=== PATIENT | female | born 1995 | race Caucasian/White ===

== ENCOUNTER 2016-07-11 07:46 | Emergency (ER) | payer MEDICAID, OTHER ==
[~2016-07-11] VITALS: Ht 152.4 cm; Wt 50.0 kg
[2016-07-11 07:50] VITALS: BP 121/84; PULSE 103; RESP 16; TEMP 97.6; O2SAT 99
[2016-07-11 07:58] LABS: MEAN CORPUSCULAR HGB CONC 36.4 % (32.0-36.0)
--- NOTE | 2016-07-11 08:01 | PD ---
HPI Chief Complaint: Pillo alarcon Time Seen by Provider: 07:54 Travel History International Travel<30 days: No Contact w/Intl Traveler<30days: No Traveled to known affect area: No History of Present Illness HPI 20-year-old female was Pillo acted and brought in for evaluation. Patient was sending text messages to her counselor and threatening suicidal. Patient denies any medical history. Patient is not on any routine medication. Patient states that she has history of IV drug abuse including opiates. Last drink use was yesterday. Patient denies any chance of being . PFSH Social History Alcohol Use: No Tobacco Use: No Allergies-Medications (Allergen,Severity, Reaction): Coded Allergies: No Known Allergies (Unverified , 02/17/15) Reported Meds & Prescriptions Reported Meds & Active Scripts Active No Active Prescriptions or Reported Medications Review of Systems General / Constitutional: No: Fever Eyes: No: Visual changes HENT: No: Headaches Cardiovascular: No: Chest Pain or Discomfort Respiratory: No: Shortness of Breath Gastrointestinal: No: Abdominal Pain Genitourinary: No: Dysuria Musculoskeletal: No: Pain Skin: No Rash Neurologic: No: Weakness Psychiatric: No: Depression Endocrine: No: Polydipsia Hematologic/Lymphatic: No: Easy Bruising Physical Exam Narrative GENERAL: Well-nourished, well-developed patient. SKIN: Focused skin assessment warm/dry. HEAD: Normocephalic. EYES: No scleral icterus. No injection or drainage. NECK: Supple, trachea midline. No JVD or lymphadenopathy. CARDIOVASCULAR: Regular rate and rhythm without murmurs, gallops, or rubs. RESPIRATORY: Breath sounds equal bilaterally. No accessory muscle use. GASTROINTESTINAL: Abdomen soft, non-tender, nondistended. MUSCULOSKELETAL: No cyanosis, or edema. BACK: Nontender without obvious deformity. No CVA tenderness. Neurologic exam normal. Data Data Last Documented VS Vital Signs Date Time Temp Pulse Resp B/P Pulse Ox O2 Delivery O2 Flow Rate FiO2 07/11/16 07:50 97.6 103 16 121/84 99 Orders Complete Blood Count With Diff (07/11/16 07:57) Comprehensive Metabolic Panel (07/11/16 07:57) Urinalysis - C+S If Indicated (07/11/16 07:57) Ed Urine Pregnancytest Poc (07/11/16 07:57) Psych Screen (07/11/16 07:57) Drug Screen, Random Urine (07/11/16 07:57) Labs Laboratory Tests Test 07/11/16 07/11/16 08:00 08:10 White Blood Count 5.9 TH/MM3 Red Blood Count 4.27 MIL/MM3 Hemoglobin 13.1 GM/DL Hematocrit 36.0 % Mean Corpuscular Volume 84.4 FL Mean Corpuscular Hemoglobin 30.7 PG Mean Corpuscular Hemoglobin 36.4 % Concent Red Cell Distribution Width 12.2 % Platelet Count 215 TH/MM3 Mean Platelet Volume 7.9 FL Neutrophils (%) (Auto) 47.4 % Lymphocytes (%) (Auto) 38.7 % Monocytes (%) (Auto) 12.5 % Eosinophils (%) (Auto) 1.1 % Basophils (%) (Auto) 0.3 % Neutrophils # (Auto) 2.8 TH/MM3 Lymphocytes # (Auto) 2.3 TH/MM3 Monocytes # (Auto) 0.7 TH/MM3 Eosinophils # (Auto) 0.1 TH/MM3 Basophils # (Auto) 0.0 TH/MM3 CBC Comment AUTO DIFF Differential Comment AUTO DIFF CONFIRMED Sodium Level 142 MEQ/L Potassium Level 3.1 MEQ/L Chloride Level 106 MEQ/L Carbon Dioxide Level 27.1 MEQ/L Anion Gap 9 MEQ/L Blood Urea Nitrogen 6 MG/DL Creatinine 0.65 MG/DL Estimat Glomerular Filtration 114 ML/MIN Rate Random Glucose 104 MG/DL Calcium Level 9.0 MG/DL Total Bilirubin 0.5 MG/DL Aspartate Amino Transf 61 U/L (AST/SGOT) Alanine Aminotransferase 79 U/L (ALT/SGPT) Alkaline Phosphatase 61 U/L Total Protein 7.8 GM/DL Albumin 3.8 GM/DL Urine Color YELLOW Urine Turbidity HAZY Urine pH 6.0 Urine Specific Bath 1.027 Urine Protein 30 mg/dL Urine Glucose (UA) NEG mg/dL Urine Ketones NEG mg/dL Urine Occult Blood NEG Urine Nitrite NEG Urine Bilirubin NEG Urine Urobilinogen 2.0 MG/DL Urine Leukocyte Esterase SMALL Urine RBC 2 /hpf Urine WBC 4 /hpf Urine Squamous Epithelial 14 /hpf Cells Urine Calcium Oxalate Crystals OCC /hpf Urine Bacteria FEW /hpf Urine Mucus MANY /lpf Microscopic Urinalysis Comment CULT NOT INDICATED Urine Opiates Screen POS Urine Barbiturates Screen NEG Urine Amphetamines Screen POS Urine Benzodiazepines Screen NEG Urine Cocaine Screen NEG Urine Cannabinoids Screen POS [facility] Medical Decision Making Medical Screen Exam Complete: Yes Emergency Medical Condition: Yes Interpretation(s) 9:02 AM. CBC within normal limit. Potassium 3.1. AST 61. ALT 79. Drug screen positive for opiates, amphetamine, cannabis. UA positive for bacteria. Differential Diagnosis Differential diagnosis including adjustment disorder, drug induced mood disorder , suicidal, depression. Narrative Course 20-year-old female was Ferro acted and brought in for psychiatric evaluation. Patient was threatening suicidal. Patient has history IV drug abuse. KCl 40 mEq by mouth given. 9:04 AM. Patient is medically cleared for psychiatric evaluation and disposition. Scripts No Active Prescriptions or Reported Meds Sebastian Carr MD July 11, 2016 08:01
[2016-07-11 08:18] LABS: AUTOMATED NEUTROPHIL # 2.8 TH/MM3 (1.8-7.7); BASOPHIL % 0.3 % (0.0-2.0); EOSINOPHIL # 0.1 TH/MM3 (0-0.4); EOSINOPHIL % 1.1 % (0.0-4.0); LYMPH % 38.7 % (9.0-44.0); LYMPHOCYTE # 2.3 TH/MM3 (1.0-4.8); MEAN CELL VOLUME 84.4 FL (80.0-100.0); MEAN CORPUSCULAR HEMOGLOBIN 30.7 PG (27.0-34.0); MONO % 12.5 % (0.0-8.0); NEUT % 47.4 % (16.0-70.0); PLATELET COUNT 215 TH/MM3 (150-450); RED BLOOD COUNT 4.27 MIL/MM3 (4.00-5.30); RED CELL DISTRIBUTION WIDTH 12.2 % (11.6-17.2); WHITE BLOOD COUNT 5.9 TH/MM3 (4.0-11.0)
[2016-07-11 08:19] LABS: HEMO FLAGS AUTO DIFF
[2016-07-11 08:26] LABS: BACTERIA, URINE FEW /hpf; BLOOD, URINE NEG (NEG); CALCIUM OXALATE CRYSTALS,URINE OCC /hpf; COMMENT (UR) CULT NOT INDICATED; CULTURE IF INDICATED CULT NOT INDICATED; GLUCOSE,URINE NEG (NEG); KETONE, URINE NEG (NEG); MUCUS URINE MANY /lpf (OCC); NITRITE,URINE NEG (NEG); SQUAMOUS EPITHELIAL CELL URINE 14 /hpf (0-5); URINE COLOR YELLOW (YELLW/STRAW)
[2016-07-11 08:29] LABS: AMPHETAMINE, URINE POS (NEG); BARBITURATES, URINE NEG (NEG); COCAINE, URINE NEG (NEG)
[2016-07-11 08:32] LABS: ALT (GPT) 79 U/L (10-53); ANION GAP 9 MEQ/L (5-15); AST (GOT) 61 U/L (15-37); BICARBONATE 27.1 MEQ/L (21.0-32.0); BLOOD UREA NITROGEN 6 MG/DL (7-18); CHLORIDE 106 MEQ/L (98-107); GLOMERULAR FILTRATION RATE 114 ML/MIN (>89); POTASSIUM 3.1 MEQ/L (3.5-5.1); SODIUM (NA) 142 MEQ/L (136-145)
[2016-07-11 08:34] LABS: ALKALINE PHOSPHATASE 61 U/L (45-117); TOTAL BILIRUBIN ADULT 0.5 MG/DL (0.2-1.0)
[2016-07-11 09:00] LABS: SCAN/DIFF AUTO DIFF CONFIRMED
[2016-07-11] MEDS ORDERED: POTASSIUM CHLORIDE 20 MEQ CONTROLLED RELEASE TAB PO ONE (09:15)
[2016-07-11 09:30] VITALS: BP 140/91; PULSE 89; RESP 18; TEMP 98.3; O2SAT 98
[2016-07-11 14:29] VITALS: BP 140/91; PULSE 89; RESP 18; O2SAT 98
--- NOTE | 2016-07-12 11:36 | PD.CONS ---
Provisional Diagnosis Admission Date [place]. Polysubstance dependence, including cannabis, opiates amphetamines History of Present Illness Service Psychiatry Consult Requested By Primary Care Physician No Primary Care Physician HPI The patient is a 20-year-old woman, domiciled in an addiction treatment Center, single, unemployed, without any previous psychiatric history, no previous psychiatric hospitalizations, no previous suicidal attempts, polysubstance dependence, including opiates, cannabis, amphetamines, alcohol, medical history hepatitis C, who was Ferro acted and brought in for evaluation. Patient was sending text messages to her counselor and threatening suicidal. On psychiatric evaluation today patient stated that she was not making suicidal statements, she was just suggesting that she will harm herself and she was not "go to her treatment Center. Patient denies depressive symptoms, she denies anxiety, denies larry and psychosis. She denies suicidal or homicidal ideation, she denies visual and auditory hallucinations. Patient is calm and cooperative on evaluation, no agitation, no aggressive behavior present. Patient reports daily use of cannabis, amphetamines and IV opiates. She drinks alcohol occasionally Review of Systems Constitutional: DENIES: Diaphoretic episodes, Fatigue, Fever, Weight gain, Weight loss, Chills, Dizziness, Change in appetite, Night Sweats Endocrine: DENIES: Abnorml menstrual pattern, Heat/cold intolerance, Polydipsia , Polyuria, Polyphagia Eyes: DENIES: Blurred vision, Diplopia, Eye inflammation, Eye pain, Vision loss , Photosensitivity, Double Vision Ears, nose, mouth, throat: DENIES: Tinnitus, Hearing loss, Vertigo, Nasal discharge, Oral lesions, Throat pain, Hoarseness, Ear Pain, Running Nose, Epistaxis, Sinus Pain, Toothache, Odynophagia Respiratory: DENIES: Apneas, Cough, Snoring, Wheezing, Hemoptysis, Sputum production, Shortness of breath Cardiovascular: DENIES: Chest pain, Palpitations, Syncope, Dyspnea on Exertion , PND, Lower Extremity Edema, Orthopnea, Claudication Gastrointestinal: DENIES: Abdominal pain, Black stools, Bloody stools, Constipation, Diarrhea, Nausea, Vomiting, Difficulty Swallowing, Anorexia Genitourinary: DENIES: Abnormal vaginal bleeding, Dysmenorrhea, Dyspareunia, Sexual dysfunction, Urinary frequency, Urinary incontinence, Urgency, Hematuria , Dysuria, Nocturia, Vaginal discharge Musculoskeletal: DENIES: Joint pain, Muscle aches, Stiffness, Joint Swelling, Back pain, Neck pain Integumentary: DENIES: Abnormal pigmentation, Pruritus, Rash, Nail changes, Breast masses, Breast skin changes, Nipple discharge Hematologic/lymphatic: DENIES: Bruising, Lymphadenopathy Immunologic/allergic: DENIES: Eczema, Urticaria Neurologic: DENIES: Abnormal gait, Headache, Localized weakness, Paresthesias, Seizures, Speech Problems, Tremor, Poor Balance Psychiatric: DENIES: Anxiety, Confusion, Mood changes, Depression, Hallucinations, Agitation, Suicidal Ideation, Homicidal Ideation, Delusions Past Family Social History Coded Allergies: No Known Allergies (Unverified , 02/17/15) No Active Prescriptions or Reported Meds Family History Patient denies a psychiatric Family history Social History Patient was born and raised in [place] [facility] with her parents, is single, unemployed Physical Exam Vital Signs Vital Signs Date Time Temp Pulse Resp B/P Pulse Ox O2 Delivery O2 Flow Rate FiO2 07/11/16 14:29 89 18 140/91 98 Room Air 07/11/16 09:30 98.3 Lab Results Toxicology is positive for amphetamines, opiates and benzodiazepines Mental Status Examination Appearance woman, good hygiene, multiple tattoos, [facility], calm, cooperative Speech: Unremarkable Orientation: x3 Memory: Unremarkable Thought Process: Logical Thought Content: Unremarkable Hallucination Type: None Attention and Concentration: Good Suicidal Ideation: No Previous Suicide Attempts: No Homicidal Ideation: No Previous Homicide Attempts: No Insight: Good Judgment: WNL Affect: Good Affect if Inappropriate: Flat Mood: Appropriate Motor Activity: Normal gait Assessment & Plan Problem List: (1) Polysubstance abuse Assessment & Plan: Was significant evaluation today patient does not have any evidence of depression, anxiety, perceptual disturbances, larry, she denies suicidal or homicidal ideation, she denies visual and auditory hallucinations. At this moment the patient does not meet criteria for involuntary psychiatric admission. Patient will benefit to continue her program for drug rehabilitation. Extensive motivation, support and psycho education provided. Ferro act will be lifted. ICD Code: F19.10 Assessment & Plan Estimated LOS: Donald Mckeon MD July 12, 2016 11:36
== END 2016-07-11 16:02 | disposition home or self-care (01) ==
LOC: NEPC 07:46 → NEPJ 16:02
DX: F15.20 Other stimulant dependence, uncomplicated (principal)
CPT/HCPCS: 80053; 80307; 81001; 84703; 85025; 99284

== ENCOUNTER 2018-03-01 14:23 | Inpatient (IN) ==
[2018-03-01] MEDS ORDERED: Buprenorphine/Naloxone 8/2 MG Sublingual Tablet SL PRN (16:46)
--- NOTE | 2018-03-01 17:56 | ED ---
History of Present Illness Primary Care Physician: NOT REQUIRED care in [place] with Roseanne Miller Chief Complaint: I have low fluid History of Present Illness: 22-year-old at 36 weeks and 5 days presents with borderline amniotic fluid reports 2-3 weeks ago was told it was 5-6 cm. She has had routine care in [place] with Roseanne Miller records are at home with her mother. She is currently in this area since her mother resides here. She admits to recent IV drug use of opiates and relapsed-patient reports that the only way she uses drugs was through IV access and currently her partner uses as well different father baby than her previous . Last use she admits to is yesterday. She reports good movement denies leakage of fluid vaginal bleeding or ruptured membranes. History of hepatitis C he received [place]. 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 This includes certification that hospital inpatient services are reasonable and necessary and in the case of services not specified as inpatient-only under 42 CFR 419.22(n), that they are appropriately provided as inpatient services in accordance to with the 2-midnight benchmark under 43 CFR 412.3(e) Review of Systems All other systems reviewed negative except as stated in HPI [facility] - History History Provided By: Patient - Medical History Medical History: Medical History (Last Updated 03/01/18 @ 10:31 by Rosa Lowry RN) Patient denies medical problems - Tobacco History Smoking Status: Current every day smoker Tobacco Type: Cigarettes - Alcohol History How Often Do You Have a Drink Containing Alcohol: Never - Substance Use History Substance History: Active Abuse Medications and Allergies Active Medications: Active Medications Buprenorphine/Naloxone (Suboxone 8/2 Mg Sl) 0.5 tab SL DAILY PRN PRN Reason: AGITATION AND/OR HALLUCINATION Clonidine HCl (Catapres) 0.1 mg PO Q6H PRN PRN Reason: ANXIETY AND/OR AGITATION Ferrous Sulfate (Ferosul) 325 mg PO BID [place] Hydroxyzine Pamoate (Vistaril) 100 mg PO Q4H [place] Lorazepam (Ativan) 1 mg PO Q6H PRN PRN Reason: AGITATION Ondansetron HCl (Zofran Odt) 4 mg PO Q6H PRN PRN Reason: NAUSEA OR VOMITING Vit/Calcium/Iron/Folic Ac (Stuartnatal Plus 3) 1 tab PO DAILY SASK[place] Allergies Allergy/AdvReac Type Severity Reaction Status Date / Time No Known Allergies Allergy Verified 03/01/18 10:31 Home Medications Medication Instructions Recorded Confirmed Type No Known Home Medications 03/01/18 03/01/18 History Exam Vital signs: Intake & Output 02/28/18 03/01/18 03/01/18 18:59 06:59 18:59 Weight 64 kg - Constitutional no acute distress - Routine HEENT Exam Head: Present: normocephalic ENT: Present: mucous membranes moist - Routine Neck Exam Present: supple - Routine Chest/Breast/Axilla Exam Chest wall: Absent: tenderness Breast: Absent: tenderness, induration, mass Axillae: Absent: lymphadenopathy - Routine Respiratory Exam Present: accessory muscle use - Routine Cardiovascular Exam Present: RRR - Routine Abdominal Exam Present: soft (Gravid heart rate category 1) - Routine Exam External: Present: normal urethra appearance Groin: Absent: inguinal hernia Perineum Description: Intact Comments: Cervix is closed - Routine Skin Exam Present: normal turgor (Puncture rodrigues which are noted to be fresh in the antecubital fossa with some old scarring) - Routine Neurological Exam Present: alert, oriented X3 Results - Labs Labs: Laboratory Results - last 24 hr 03/01/18 15:59 POC Urine Opiates Positive POC Urine Buprenorphine Negative POC Urine Oxycodone Positive A POC Urine Methadone Negative POC Urine Barbiturates Negative POC Urine PCP Positive A POC Ur Amphetamines Negative POC Ur Methamphetamine Positive POC Urine MDMA Negative POC Ur Benzodiazepine Negative POC Urine Cocaine Positive POC Ur Marijuana (THC) Negative Assessment and Plan - Diagnosis (1) Oligohydramnios in third trimester Code(s): O41.03X0 - Oligohydramnios, third trimester, not applicable or unspecified Status: Acute (2) 36 weeks gestation of Code(s): Z3A.36 - 36 weeks gestation of Status: Acute - Plan Admit to Dr. Sheppard Oral hydration Unregistered labs as well as GC and chlamydia HIV hepatitis panel Ultrasound in the a.m. Continuous monitoring Recent drug use-meds ordered to manage if anxious or agitation Discharge Plan - Physicians Team Primary Care Provider: NOT REQUIRED, Attending Provider: Edith Sheppard - Rxs /Orders / Referrals /Forms Prescriptions: No Action No Known Home Medications Referrals: NOT REQUIRED, [Primary Care Provider] - See Instructions
[2018-03-01 18:05] LABS: Baso % (Auto) 0.1 % (0.0-2.0); Hematocrit 36.4 % (35.0-46.0); Hemoglobin 12.7 gm/dL (11.6-15.3); Lymph # (Auto) 1.1 th/mm3 (1.0-4.8); Lymph % (Auto) 10.6 % (9.0-44.0); Mean Corpuscular HGB Conc 34.9 % (32.0-36.0); Mean Corpuscular Hemoglobin 31.8 pg (27.0-34.0); Mean Corpuscular Volume 90.9 fL (80.0-100.0); Mean Platelet Volume 8.1 fL (7.0-11.0); Mono # (Auto) 0.4 th/mm3 (0.0-0.9); Mono % (Auto) 3.9 % (0.0-8.0); Neut # (Auto) 9.2 th/mm3 (1.8-7.7); Neut % (Auto) 85.4 % (16.0-70.0); Platelet Count 269 th/mm3 (150-450); Red Blood Count 4.01 mil/mm3 (4.00-5.30); Red Cell Distribution Width 13.2 % (11.6-17.2); White Blood Count 10.7 th/mm3 (4.0-11.0)
[2018-03-01 18:16] LABS: Alanine Aminotransferase 27 U/L (10-53); Albumin 3.1 g/dL (3.4-5.0); Alkaline Phosphatase 186 U/L (45-117); Anion Gap 9 meq/L (5-15); Aspartate Aminotransferase 27 U/L (15-37); Blood Urea Nitrogen 4 mg/dL (7-18); Calcium 8.6 mg/dL (8.5-10.1); Carbon Dioxide 24.6 meq/L (21.0-32.0); Chloride 106 meq/L (98-107); Glomerular Filtration Rate Greater Than 89 mL/min (>89); Glucose,Random 69 mg/dL (74-106); Potassium 4.4 meq/L (3.5-5.1); Sodium 140 meq/L (136-145); Total Protein 7.1 g/dL (6.4-8.2)
[2018-03-01 19:29] LABS: Rubella IgG Antibody 418.4 IU/mL (10.0-500.0)
[2018-03-01] MEDS: Ferrous Sulfate 325 MG Tablet PO SCH ×2 (19:35→23:04)
[2018-03-01] MEDS: LORazepam 1 MG Tablet PO PRN (19:38)
[2018-03-01] MEDS: Famotidine 20 MG Tablet PO SCH (20:43)
[2018-03-01 20:52] LABS: Hepatitis A IgM Antibody Nonreactive (Nonreactive)
[2018-03-01 20:53] LABS: Hepatitits B Surface Antigen Nonreactive (Nonreactive)
[2018-03-02] MEDS ORDERED: Prenatal Vit/Ca/Iron/Folic Acid Tablet PO SCH (09:00)
[2018-03-02] MEDS: Famotidine 20 MG Tablet PO SCH ×2 (09:32→20:45)
[2018-03-02] MEDS: Ferrous Sulfate 325 MG Tablet PO SCH ×2 (09:32→20:45)
[2018-03-02] MEDS ORDERED: fentaNYL Citrate Inj 100 MCG/2 ML Ampul IV.PUSH PRN ×2 (13:25)
[2018-03-02] MEDS ORDERED: Sod Chloride 0.9% Inj 1,000 ML IV.CONT PRN (13:25)
[2018-03-02] MEDS ORDERED: Oxytocin 30 Units/500ml Premix 30 UNITS/500 ML BAG IV.SIG ONE (13:25)
[2018-03-02] MEDS ORDERED: Sodium Chlor 0.9% Inj 500 ML IV.SIG PRN (13:25)
[2018-03-02] MEDS ORDERED: Naloxone Inj 0.4 MG/ML Vial IV.PUSH PRN (13:25)
[2018-03-02] MEDS ORDERED: Citric Acid/Sodium Citrate Liq 30 ML UDC PO SCH (13:30)
[2018-03-02] MEDS ORDERED: Oxytocin 30 Units/500ml Premix 30 UNITS/500 ML BAG IV.SIG PRN (13:32)
--- NOTE | 2018-03-02 13:36 | P.HPOB ---
History of Present Illness Service: labor Primary Care Physician: NOT REQUIRED Chief Complaint: I have low fluid History of Present Illness: 22-year-old at 36 weeks and 5 days presents with borderline amniotic fluid reports 2-3 weeks ago was told it was 5-6 cm. She has had routine care in [place] with Roseanne Miller records are at home with her mother. She is currently in this area since her mother resides here. She admits to recent IV drug use of opiates and relapsed-patient reports that the only way she uses drugs was through IV access and currently her partner uses as well different father baby than her previous . Last use she admits to is yesterday. She reports good movement denies leakage of fluid vaginal bleeding or ruptured membranes. History of hepatitis C and did received [place]. She is concerned that she may have been re exposed. She currently smokes cigarettes Her first child is currently with father in [place]. The father of this baby is involved. He is in recovery. 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 She started smoking THC at 13 and then began smoking crushed pills at 16. She went to rehab but on graduation, relapsed to IV opioids. She went to [facility] several years ago. She was in abstinence based recovery during this until 2-3 weks ago. She was stressed because she and her fiance had lost house in [place] and returned to [facility]. She tried 4m dilaudid and became hooked. She told her Hoop Flaring Machine Operator who dismissed her immediately, despite her near term oligohydramnios. She came up here and called Griselda Monaco who then called me. I had her come to the [facility] and see Dr. HAIDER. She had Dr. Mcmanus for care with her first child and was delivered by Dr. Smith. SHe was excited to learn Dr. Mcmanus chronometer adjuster today. 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 Weeks Gestation:: 36 Para: 1 - Inpatient Certification I certify that the inpatient services were ordered in accordance with Medicare regulations governing the order. This includes certification that hospital inpatient services are reasonable and necessary and in the case of services not specified as inpatient-only under 42 CFR 419.22(n), that they are appropriately provided as inpatient services in accordance to with the 2-midnight benchmark under 43 CFR 412.3(e) Estimated Total Length of Stay (Days): 3 Plans for Post Hospital Care: Home Review of Systems All other systems reviewed negative except as stated in HPI [facility] - History History Provided By: Patient - Medical / Surgical Hx Neg / Unobtainable Medical Problems Denied: Yes Surgical History: No Previous Surgery - Medical History Medical History: Medical History (Last Updated 03/01/18 @ 10:31 by Rosa Lowry RN) Patient denies medical problems - Social History I have reviewed the patient's Social History: Yes - Tobacco History Smoking Status: Current every day smoker Tobacco Type: Cigarettes - Alcohol History How Often Do You Have a Drink Containing Alcohol: Never - Substance Use History Substance History: Active Abuse Medications and Allergies Active Medications: Active Medications Buprenorphine HCl (Buprenorphine) 4 mg SL BID [facility] Citric Acid/Sodium Citrate (Sodium Citrate/Citric Acid Liq) 30 ml PO CHANNEL BUSINESS MANAGER [facility] Stop: 03/06/18 13:29 Clonidine HCl (Catapres) 0.1 mg PO Q6H PRN PRN Reason: ANXIETY AND/OR AGITATION Famotidine (Pepcid) 20 mg PO BID [facility] Last Admin: 03/02/18 09:32 Dose: 20 mg Fentanyl Citrate (Fentanyl Inj) 50 mcg IV.PUSH Q1H PRN PRN Reason: Pain Scale 3 - 5 Fentanyl Citrate (Fentanyl Inj) 100 mcg IV.PUSH Q1H PRN PRN Reason: PAIN SCALE 6 TO 10 Ferrous Sulfate (Ferosul) 325 mg PO BID [facility] Last Admin: 03/02/18 09:32 Dose: 325 mg Hydroxyzine Pamoate (Vistaril) 100 mg PO Q4H [facility] Last Admin: 18 09:32 Dose: 100 mg Lactated Ringer's (Lr 1000 Ml Inj) 1,000 mls @ 125 mls/hr IV.CONT .Q8H [facility] Lactated Ringer's (Lr 1000 Ml Inj) 1,000 mls @ 3,000 mls/hr IV.SIG UNSCH PRN PRN Reason: compromise or epidural Sodium Chloride (Ns Inj) 500 mls @ 1,000 mls/hr IV.SIG UNSCH PRN PRN Reason: SEE LABEL COMMENTS Sodium Chloride (Ns Inj) 1,000 mls @ 100 mls/hr IV.CONT .Q10H PRN PRN Reason: SEE LABEL COMMENTS Oxytocin (Pitocin 30 Units/Ns 500 Ml Premix) 30 units in 500 mls @ 999 mls/hr IV.SIG BOLUS ONE Stop: 03/02/18 13:55 Oxytocin (Pitocin 30 Units/Ns 500 Ml Premix) 30 units in 500 mls @ 1 mls/hr IV.SIG TITRATE PRN; Protocol PRN Reason: For induction of labor Lidocaine HCl (Xylocaine 1% Inj) 0.1 ml I-DERMAL PRN PRN PRN Reason: For IV start Stop: 03/05/18 13:24 Lidocaine HCl (Xylocaine 1% Inj) 10 ml INFILTRATN PRN PRN PRN Reason: For episiotomy repair Stop: 03/04/18 13:24 Lorazepam (Ativan) 1 mg PO Q6H PRN PRN Reason: AGITATION Last Admin: 03/01/18 19:38 Dose: 1 mg Mineral Oil (Muri-Lube Oil) 10 ml TOPICAL PRN PRN PRN Reason: PRN perineal massage Miscellaneous (Pill Splitter) 1 each OTHER UNSCH PRN PRN Reason: SEE LABEL COMMENTS Naloxone HCl (Narcan Inj) 0.1 mg IV.PUSH Q2M PRN PRN Reason: for opiate reversal Ondansetron HCl (Zofran Odt) 4 mg PO Q6H PRN PRN Reason: NAUSEA OR VOMITING Vit/Calcium/Iron/Folic Ac (Stuartnatal Plus 3) 1 tab PO DAILY [facility] Last Admin: 03/02/18 09:33 Dose: 1 tab Allergies Allergy/AdvReac Type Severity Reaction Status Date / Time No Known Allergies Allergy Verified 03/01/18 10:31 Home Medications Medication Instructions Recorded Confirmed Type No Known Home Medications 03/01/18 03/01/18 History Exam Vital signs: Vital Signs 03/01/18 19:18 03/01/18 22:00 03/02/18 01:00 Temperature 98.6 F Pulse Rate 64 Respiratory Rate 18 18 16 Blood Pressure 127/67 03/02/18 02:56 03/02/18 09:20 Temperature 97.7 F Pulse Rate 87 Respiratory Rate 16 18 Blood Pressure 106/61 Intake & Output 03/01/18 03/02/18 03/02/18 18:59 06:59 18:59 Weight 64 kg - Constitutional no acute distress - Routine HEENT Exam Head: Present: normocephalic ENT: Present: mucous membranes moist - Routine Respiratory Exam Present: CTA bilaterally - Routine Cardiovascular Exam Present: RRR - Routine Abdominal Exam Present: soft - Routine Neurological Exam Present: alert (BPP today shows vertex infant with CHIP 3. Her cervix is 3/80/0 anterior EFW 7 pounds Pelvis proven) Results - Labs CBC & Chem 7: 03/01/18 16:56 03/01/18 16:56 Labs: Laboratory Results - last 24 hr 03/01/18 03/01/18 03/01/18 15:56 15:59 16:56 WBC 10.7 RBC 4.01 Hgb 12.7 Hct 36.4 MCV 90.9 MCH 31.8 MCHC 34.9 RDW 13.2 Plt Count 269 MPV 8.1 Neut % (Auto) 85.4 H Lymph % (Auto) 10.6 Terrell % (Auto) 3.9 Eos % (Auto) 0.0 Baso % (Auto) 0.1 Neut # (Auto) 9.2 H Lymph # (Auto) 1.1 Terrell # (Auto) 0.4 Eos # (Auto) 0.0 Baso # (Auto) 0.0 WBC Differential . Differential Comment Auto diff final Sodium Potassium Chloride Carbon Dioxide Anion Gap BUN Creatinine Estimated GFR Random Glucose Calcium Total Bilirubin Direct Bilirubin Indirect Bilirubin AST ALT Alkaline Phosphatase Total Protein Albumin POC Urine Opiates Positive POC Urine Buprenorphine Negative POC Urine Oxycodone Positive A POC Urine Methadone Negative POC Urine Barbiturates Negative POC Urine PCP Positive A POC Ur Amphetamines Negative POC Ur Methamphetamine Positive POC Urine MDMA Negative POC Ur Benzodiazepine Negative POC Urine Cocaine Positive POC Ur Marijuana (THC) Negative Chlam trachomat DNA PCR Not detected Hepatitis A IgM Ab Hep Bs Antigen Hep B Core IgM Ab Hep C IgG Ab HIV 1&2 Ab/P24 Ag 4thGn N.gonorrhoeae DNA (PCR) Not detected Rubella Immunity Screen Rubella Ab, Quant Group B Strep (PCR) 03/01/18 03/01/18 03/01/18 16:56 16:56 16:56 WBC RBC Hgb Hct MCV MCH MCHC RDW Plt Count MPV Neut % (Auto) Lymph % (Auto) Terrell % (Auto) Eos % (Auto) Baso % (Auto) Neut # (Auto) Lymph # (Auto) Terrell # (Auto) Eos # (Auto) Baso # (Auto) WBC Differential Differential Comment Sodium 140 Potassium 4.4 Chloride 106 Carbon Dioxide 24.6 Anion Gap 9 BUN 4 L Creatinine 0.53 Estimated GFR Greater than 89 Random Glucose 69 L Calcium 8.6 D Total Bilirubin 0.5 Direct Bilirubin 0.2 Indirect Bilirubin 0.3 AST 27 ALT 27 Alkaline Phosphatase 186 H Total Protein 7.1 D Albumin 3.1 L POC Urine Opiates POC Urine Buprenorphine POC Urine Oxycodone POC Urine Methadone POC Urine Barbiturates POC Urine PCP POC Ur Amphetamines POC Ur Methamphetamine POC Urine MDMA POC Ur Benzodiazepine POC Urine Cocaine POC Ur Marijuana (THC) Chlam trachomat DNA PCR Hepatitis A IgM Ab Nonreactive Hep Bs Antigen Nonreactive Hep B Core IgM Ab Nonreactive Hep C IgG Ab Reactive H HIV 1&2 Ab/P24 Ag 4thGn Nonreactive N.gonorrhoeae DNA (PCR) Rubella Immunity Screen Immune Rubella Ab, Quant 418.4 Group B Strep (PCR) Negative Caprini VTE Risk Assessment Caprini VTE Risk Assessment: No/Low Risk (score <= 1) Caprini Risk Assessment Model: Point Value = 1 Point Value = 2 Point Value = 3 Point Value = 5 Age 41-60 Minor surgery BMI > 25 kg/m2 Swollen legs Varicose veins or History of unexplained or recurrent spontaneous Oral contraceptives or hormone replacement Sepsis (< 1 month) Serious lung disease, including pneumonia (< 1 month) Abnormal pulmonary function Acute myocardial infarction Congestive heart failure (< 1 month) History of inflammatory bowel disease Medical patient at bed rest Age 61-74 Arthroscopic surgery Major open surgery (> 45 min) Laparoscopic surgery (> 45 min) Malignancy Confined to bed (> 72 hours) Immobilizing plaster cast Central venous access Age >= 75 History of VTE Family history of VTE Factor V Leiden Prothrombin [id number] Lupus anticoagulant Anticardiolipin antibodies Elevated serum homocysteine Heparin-induced thrombocytopenia Other congenital or acquired thrombophilia Stroke (< 1 month) Elective arthroplasty Hip, pelvis, or leg fracture Acute spinal cord injury (< 1 month) Prophylaxis Regimen: Total Risk Factor Score Risk Level Prophylaxis Regimen 0-1 Low Early ambulation 2 Moderate Order ONE of the following: *Sequential Compression Device (SCD) *Heparin 5000 units SQ BID 3-4 Higher Order ONE of the following medications: *Heparin 5000 units SQ TID *Enoxaparin/Lovenox 40 mg SQ daily (WT < 150 kg, CrCl > 30 mL/min) *Enoxaparin/Lovenox 30 mg SQ daily (WT < 150 kg, CrCl > 10-29 mL/min) *Enoxaparin/Lovenox 30 mg SQ BID (WT < 150 kg, CrCl > 30 mL/min) AND/OR *Sequential Compression Device (SCD) 5 or more Highest Order ONE of the following medications: *Heparin 5000 units SQ TID (Preferred with Epidurals) *Enoxaparin/Lovenox 40 mg SQ daily (WT < 150 kg, CrCl > 30 mL/min) *Enoxaparin/Lovenox 30 mg SQ daily (WT < 150 kg, CrCl > 10-29 mL/min) *Enoxaparin/Lovenox 30 mg SQ BID (WT < 150 kg, CrCl > 30 mL/min) AND *Sequential Compression Device (SCD) Assessment and Plan - Plan Admit to Dr. Sheppard Oral hydration Unregistered labs as well as GC and chlamydia HIV hepatitis panel Ultrasound in the a.m. Continuous monitoring Recent drug use-meds ordered to manage if anxious or agitation She will have script for subutex on discharge and follow up with me SaturdayMarch 12.
[2018-03-02 14:56] LABS: Baso % (Auto) 0.4 % (0.0-2.0); Eos % (Auto) 0.3 % (0.0-4.0); Hematocrit 32.1 % (35.0-46.0); Hemoglobin 12.1 gm/dL (11.6-15.3); Mean Corpuscular Hemoglobin 33.2 pg (27.0-34.0); Mean Corpuscular Volume 88.4 fL (80.0-100.0); Mean Platelet Volume 7.8 fL (7.0-11.0); Mono # (Auto) 0.6 th/mm3 (0.0-0.9); Neut # (Auto) 6.8 th/mm3 (1.8-7.7); Neut % (Auto) 72.3 % (16.0-70.0); Platelet Count 260 th/mm3 (150-450); Red Blood Count 3.64 mil/mm3 (4.00-5.30); Red Cell Distribution Width 13.2 % (11.6-17.2); White Blood Count 9.5 th/mm3 (4.0-11.0)
[2018-03-02 15:03] LABS: Mean Corpuscular HGB Conc 37.6 % (32.0-36.0)
[2018-03-02] MEDS ORDERED: Zolpidem Tartrate 5 MG Tablet PO ONE (20:00)
[2018-03-03] MEDS ORDERED: Oxytocin 30 Units/500ml Premix 30 UNITS/500 ML BAG IV.SIG PRN (02:00)
[2018-03-03] MEDS ORDERED: Penicillin G Potassium Inj 5,000,000 UNIT in Sodium Chloride 0.9% Inj 100 ML IV.SIG ONE (02:00)
[2018-03-03] MEDS ORDERED: Penicillin G Potassium Inj 2,500,000 UNIT in Sodium Chlor 0.9% Inj 100 ML IV.SIG SCH (06:00)
[2018-03-03] MEDS ORDERED: fentaNYL 2MCG-Bupiv 0.125% Epi 150 ML EPIDURAL ONE (06:49)
[2018-03-03] MEDS ORDERED: Lidocaaine 1.5%/Epinephrine 1:200,000 PF Inj 5 ML Amp ONE (09:00)
[2018-03-03] MEDS ORDERED: Lidocaine PF 1% Inj 5 ML Vial ONE (09:00)
[2018-03-03] MEDS ORDERED: fentaNYL 2MCG-Bupiv 0.125% Epi 150 ML EPIDURAL PRN (09:32)
[2018-03-03] MEDS ORDERED: Sodium Chlor 0.9% Inj 10 ML ONE (09:36)
[2018-03-03] MEDS ORDERED: fentaNYL Citrate Inj 100 MCG/2 ML Ampul EPIDURAL ONE (10:00)
[2018-03-03] MEDS ORDERED: Benzocaine 20% Top Spray 60 ML Can TOPICAL PRN (10:28)
[2018-03-03] MEDS ORDERED: Bisacodyl 10 MG Supp RECTAL PRN (10:28)
[2018-03-03] MEDS ORDERED: Naloxone Inj 0.4 MG/ML Vial IV.PUSH PRN (10:28)
[2018-03-03] MEDS ORDERED: Witch Hazel 50%/Glyderin 12.5% 40 Pad Jar RECTAL PRN (10:28)
[2018-03-03] MEDS ORDERED: Zolpidem Tartrate 5 MG Tablet PO PRN (10:28)
[2018-03-03] MEDS ORDERED: Oxytocin 30 Units/500ml Premix 30 UNITS/500 ML BAG IV.CONT PRN (10:28)
[2018-03-03] MEDS ORDERED: Acetaminophen 325 MG Tablet PO PRN (10:28)
--- NOTE | 2018-03-03 10:34 | P.OBDELI ---
Weeks Gestation: 36 Patient Started Active Labor: Yes Medical Induction of Labor: Yes Medical Induction Start Date: 03/03/18 Medical Induction Start Time: 02:00 Artificial Rupture of Membrane: Yes Artificial ROM Date: 03/03/18 Anesthesia: Epidural Episiotomy: none Vaginal Delivery: Normal Presentation: Occiput anterior Nuchal Cord: None Delayed Cord Clamping (45 sec): Yes Placenta: Spontaneous delivery, Intact, 3 vessel cord Laceration: None : Female Female A Weight: 2.755 kg score (1 min): 8 score (5 min): 9 Additional Information: Beautiful delivery of maicol. No ob lacerations baby looks great. She had lots of pain during the labor Will continue the subutex.
[2018-03-03] MEDS: Famotidine 20 MG Tablet PO SCH ×2 (11:00→20:35)
[2018-03-03] MEDS: LORazepam 1 MG Tablet PO PRN (15:29)
[2018-03-03] MEDS ORDERED: Diphtheria/Tetanus/Pertussis Vaccine Inj 0.5 ML Syringe IM ONE (16:00)
[2018-03-03] MEDS ORDERED: Measles/Mumps/Rubella Vaccine Inj 0.5 ML Vial SQ ONE (16:00)
[2018-03-03] MEDS: Senna/Docusate Sodium 8.6/50 MG Tablet PO SCH (20:34)
--- NOTE | 2018-03-04 05:22 | P.PNOB ---
Subjective Post day: 1 Interval history: doing well, pain controlled, VB < menses, pain controlled Objective Vital Signs/I&O: Vital Signs 03/03/18 06:00 03/03/18 06:46 03/03/18 07:29 Temperature 98.7 F Pulse Rate 80 79 Respiratory Rate 20 20 Blood Pressure 116/62 138/71 03/03/18 07:30 03/03/18 07:39 03/03/18 07:40 Temperature 98.6 F Pulse Rate 70 89 75 Respiratory Rate 17 Blood Pressure 125/77 131/63 03/03/18 07:55 03/03/18 08:00 03/03/18 08:10 Temperature Pulse Rate 68 62 64 Respiratory Rate 18 Blood Pressure 128/64 129/69 123/62 03/03/18 08:15 03/03/18 08:25 03/03/18 08:30 Temperature Pulse Rate 69 63 65 Respiratory Rate 17 Blood Pressure 110/54 L 104/48 L 119/56 L 03/03/18 08:35 03/03/18 08:44 03/03/18 08:45 Temperature Pulse Rate 64 59 L Respiratory Rate 18 Blood Pressure 121/64 03/03/18 08:55 03/03/18 09:00 03/03/18 09:05 Temperature Pulse Rate 60 61 65 Respiratory Rate 17 Blood Pressure 121/67 03/03/18 09:10 03/03/18 09:15 03/03/18 09:25 Temperature Pulse Rate 61 80 77 Respiratory Rate 18 Blood Pressure 108/67 03/03/18 09:30 03/03/18 09:35 03/03/18 09:45 Temperature Pulse Rate 75 89 Respiratory Rate 17 15 Blood Pressure 114/52 L 129/75 03/03/18 09:55 03/03/18 10:00 03/03/18 10:10 Temperature Pulse Rate 87 90 101 H Respiratory Rate Blood Pressure 136/75 03/03/18 10:16 03/03/18 10:25 03/03/18 10:31 Temperature Pulse Rate 144 H 67 Respiratory Rate 18 Blood Pressure 144/86 H 135/84 03/03/18 10:35 03/03/18 10:45 03/03/18 10:50 Temperature 97.6 F Pulse Rate 69 Respiratory Rate 17 18 Blood Pressure 127/72 03/03/18 11:00 03/03/18 11:05 03/03/18 11:15 Temperature Pulse Rate 63 67 Respiratory Rate 16 Blood Pressure 129/65 93/53 L 03/03/18 11:20 03/03/18 11:30 03/03/18 11:50 Temperature 97.5 F L Pulse Rate 63 67 Respiratory Rate 17 18 Blood Pressure 121/68 117/69 03/03/18 16:41 03/03/18 19:25 Temperature 98.4 F 97.7 F Pulse Rate 72 65 Respiratory Rate 18 20 Blood Pressure 120/82 128/78 Intake & Output 03/03/18 03/03/18 03/04/18 06:59 18:59 06:59 Intake Total 1000 / 1000 Balance 1000 / 1000 Intake: IV 1000 / 1000 LR 1000 mL Inj 1,000 ML @ 125 1000 / 1000 mls/hr IV.CONT .Q8H COUNT INCLUDES [facility] Rx#: [id number] Result Diagrams: 03/02/18 14:37 03/01/18 16:56 Objective Remarks: GENERAL: Well-nourished, well-developed patient. CARDIOVASCULAR: Regular rate and rhythm without murmurs, gallops, or rubs. RESPIRATORY: Breath sounds equal bilaterally. No accessory muscle use. ABDOMEN/GI: Abdomen soft, non-tender. Fundus: Firm, non-tender at umbilicus. GENITOURINARY: Light to moderate bleeding. EXTREMITIES: No cyanosis or edema, non-tender, without signs of DVT. Medications and IVs: Active Medications Acetaminophen (Tylenol) 650 mg PO Q4H PRN PRN Reason: PAIN SCALE 1 TO 2 Al Hydroxide/Mg Hydroxide (Milk Of Magnesia Liq) 30 ml PO Q12H PRN PRN Reason: Mild Constipation Benzocaine (Americaine 20% Top [place]) 1 spray TOPICAL Q4H PRN PRN Reason: For Perineum Discomfort Last Admin: 03/03/18 20:35 Dose: 1 spray Bisacodyl (Dulcolax Supp) 10 mg RECTAL DAILY PRN PRN Reason: SEVERE CONSITIPATION Buprenorphine HCl (Buprenorphine) 4 mg SL BID [facility] Last Admin: 03/03/18 20:34 Dose: 4 mg Clonidine HCl (Catapres) 0.1 mg PO Q6H PRN PRN Reason: ANXIETY AND/OR AGITATION Ephedrine Sulfate (Ephedrine/Ns Syringe) 10 mg IV.PUSH UNSCH PRN PRN Reason: SEE LABEL COMMENTS Stop: 03/04/18 09:33 Last Admin: 03/03/18 09:47 Dose: 10 mg Famotidine (Pepcid) 20 mg PO BID [facility] Last Admin: 03/03/18 20:35 Dose: 20 mg Hydroxyzine Pamoate (Vistaril) 100 mg PO Q4H [facility] Last Admin: 03/04/18 05:07 Dose: Not Given Oxytocin (Pitocin 30 Units/Ns 500 Ml Premix) 30 units in 500 mls @ 2 mls/hr IV.SIG TITRATE PRN; Protocol PRN Reason: For induction of labor Fentanyl/Bupivacaine/Sodium Chlor (Fentanyl 2 Mcg-Bupiv 0.125% Epi) 150 mls @ 11 mls/hr EPIDURAL PRN PRN PRN Reason: for Labor Pain Last Admin: 03/03/18 07:30 Dose: 11 mls/hr Oxytocin (Pitocin 30 Units/Ns 500 Ml Premix) 30 units in 500 mls @ 100 mls/hr IV.CONT UNSCH PRN PRN Reason: Heavy bleeding Ibuprofen (Motrin) 800 mg PO Q8H PRN PRN Reason: For Cramping Last Admin: 03/03/18 20:33 Dose: 800 mg Lactulose (Lactulose Liq) 30 ml PO DAILY PRN PRN Reason: SEVERE CONSITIPATION Lorazepam (Ativan) 1 mg PO Q6H PRN PRN Reason: AGITATION Last Admin: 03/03/18 15:29 Dose: 1 mg Miscellaneous (Pill Splitter) 1 each OTHER UNSCH PRN PRN Reason: SEE LABEL COMMENTS Miscellaneous Information (Misc Information) 1 each OTHER UNSCH PRN PRN Reason: SEE LABEL COMMENTS Stop: 03/04/18 09:33 Naloxone HCl (Narcan Inj) 0.1 mg IV.PUSH Q2M PRN PRN Reason: for opiate reversal Ondansetron HCl (Zofran Odt) 4 mg PO Q6H PRN PRN Reason: NAUSEA OR VOMITING Senna/Docusate Sodium (Ivette-Colace) 1 tab PO BID [facility] Last Admin: 03/03/18 20:34 Dose: 1 tab Sennosides (Senokot) 17.2 mg PO Q12H PRN PRN Reason: Moderate Constipation Sodium Chloride (Ns Flush) 2 ml IV.FLUSH BID [facility] Last Admin: 03/03/18 20:34 Dose: 2 ml Sodium Chloride (Ns Flush) 2 ml IV.FLUSH UNSCH PRN PRN Reason: FLUSH AFTER USING IV ACCESS Witch Ping/Glycerin (Tucks Pads) 1 applicatio RECTAL QID PRN PRN Reason: HEMORRHOIDS Zolpidem Tartrate (Ambien) 5 mg PO HS PRN PRN Reason: SLEEP Assessment and Plan - Plan 22 yo s/p at 37w, IOL for oligo at term 1. PPD #1: AF, VSS, anticipate d/c home tomorrow. - female . 2. Polysubstance abuse / opioid use disorder: consulted social work, primary OB to see tomorrow. 3. hx of hep C: per pt s/p Tx, Ab pos on admission viral load pending.
[2018-03-04 09:02] VITALS: RESP 18
[2018-03-04] MEDS: Famotidine 20 MG Tablet PO SCH ×2 (10:28→20:59)
[2018-03-04] MEDS: Senna/Docusate Sodium 8.6/50 MG Tablet PO SCH ×2 (10:28→20:59)
[2018-03-05] MEDS: Senna/Docusate Sodium 8.6/50 MG Tablet PO SCH (08:39)
[2018-03-05] MEDS: Famotidine 20 MG Tablet PO SCH (08:39)
--- NOTE | 2018-03-05 08:44 | P.PNOB ---
Subjective Post day: 2 Interval history: 22 yo P[address] delivered [address] decker on 03/03 now PPD 2. Arrived in [facility] over weekend from [facility] area. Was dismissed from her care there, despite known oligo at near term, due to her disclosure of recent relapse of opioid use. I was called by Griselda Monaco of [facility] and asked if I would assume care. BPP showed CHIP <4 and she was induced. Delivered with Dr. Decker, who had cared for her during the of her first child. Today she is anxious , irritable and overwhelmed with a baby that is crying and also irritable and jittery. Mom denies actual withdrawal symptoms. She is irritated the DCF wants her to stay in area and have baby and her stay with her mom. She states her mom is not a good person and home not a good environment. She wants to travel back to [facility] where she and her fiancee have a place. Baby has jaundice and is on the lights. I suspect this morning she will score high for CARLO after my informal assessment. Baby needs to stay the full five days and this will give mom time to arrange with [facility] and other social work administrator for ideal disposition. minimal lochia. BP normal No swelling. Objective Result Diagrams: 03/02/18 14:37 03/01/18 16:56 Objective Remarks: GENERAL: Well-nourished, well-developed patient. CARDIOVASCULAR: Regular rate and rhythm without murmurs, gallops, or rubs. RESPIRATORY: Breath sounds equal bilaterally. No accessory muscle use. ABDOMEN/GI: Abdomen soft, non-tender. Fundus: Firm, non-tender at umbilicus. GENITOURINARY: Light to moderate bleeding. EXTREMITIES: No cyanosis or edema, non-tender, without signs of DVT. Medications and IVs: Active Medications Acetaminophen (Tylenol) 650 mg PO Q4H PRN PRN Reason: PAIN SCALE 1 TO 2 Al Hydroxide/Mg Hydroxide (Milk Of Magnesia Liq) 30 ml PO Q12H PRN PRN Reason: Mild Constipation Benzocaine (Americaine 20% Top [place]) 1 spray TOPICAL Q4H PRN PRN Reason: For Perineum Discomfort Last Admin: 03/03/18 20:35 Dose: 1 spray Bisacodyl (Dulcolax Supp) 10 mg RECTAL DAILY PRN PRN Reason: SEVERE CONSITIPATION Buprenorphine HCl (Buprenorphine) 4 mg SL BID [facility] Last Admin: 03/04/18 21:01 Dose: 4 mg Clonidine HCl (Catapres) 0.1 mg PO Q6H PRN PRN Reason: ANXIETY AND/OR AGITATION Famotidine (Pepcid) 20 mg PO BID [facility] Last Admin: 03/04/18 20:59 Dose: 20 mg Hydroxyzine Pamoate (Vistaril) 100 mg PO Q4H [facility] Last Admin: 03/05/18 05:45 Dose: Not Given Oxytocin (Pitocin 30 Units/Ns 500 Ml Premix) 30 units in 500 mls @ 2 mls/hr IV.SIG TITRATE PRN; Protocol PRN Reason: For induction of labor Fentanyl/Bupivacaine/Sodium Chlor (Fentanyl 2 Mcg-Bupiv 0.125% Epi) 150 mls @ 11 mls/hr EPIDURAL PRN PRN PRN Reason: for Labor Pain Last Admin: 03/03/18 07:30 Dose: 11 mls/hr Oxytocin (Pitocin 30 Units/Ns 500 Ml Premix) 30 units in 500 mls @ 100 mls/hr IV.CONT UNSCH PRN PRN Reason: Heavy bleeding Ibuprofen (Motrin) 800 mg PO Q8H PRN PRN Reason: For Cramping Last Admin: 03/03/18 20:33 Dose: 800 mg Lactulose (Lactulose Liq) 30 ml PO DAILY PRN PRN Reason: SEVERE CONSITIPATION Lorazepam (Ativan) 1 mg PO Q6H PRN PRN Reason: AGITATION Last Admin: 03/03/18 15:29 Dose: 1 mg Miscellaneous (Pill Splitter) 1 each OTHER UNSCH PRN PRN Reason: SEE LABEL COMMENTS Naloxone HCl (Narcan Inj) 0.1 mg IV.PUSH Q2M PRN PRN Reason: for opiate reversal Ondansetron HCl (Zofran Odt) 4 mg PO Q6H PRN PRN Reason: NAUSEA OR VOMITING Senna/Docusate Sodium (Ivette-Colace) 1 tab PO BID [facility] Last Admin: 03/04/18 20:59 Dose: 1 tab Sennosides (Senokot) 17.2 mg PO Q12H PRN PRN Reason: Moderate Constipation Sodium Chloride (Ns Flush) 2 ml IV.FLUSH BID [facility] Last Admin: 12/25/18 23:51 Dose: Not Given Sodium Chloride (Ns Flush) 2 ml IV.FLUSH UNSCH PRN PRN Reason: FLUSH AFTER USING IV ACCESS Witch Ping/Glycerin (Tucks Pads) 1 applicatio RECTAL QID PRN PRN Reason: HEMORRHOIDS Zolpidem Tartrate (Ambien) 5 mg PO HS PRN PRN Reason: SLEEP Assessment and Plan - Plan 22 yo s/p at 37w, IOL for oligo at term 1. PPD #1: AF, VSS, anticipate d/c home tomorrow. - female . 2. Polysubstance abuse / opioid use disorder: consulted social work, primary OB to see tomorrow. 3. hx of hep C: per pt s/p Tx, Ab pos on admission viral load pending. PPD 2 Mom to be discharged and reside upstairs in PICU with daughter while CARLO and jaundice addressed. Has script fo 21 subutex that should be covered by [facility] pre PA which will be requested on Mar 10 when my nurse returns. explained to Michelle why DCF involved and not to be irritated with people that are obligated to evaluate her safety and that of baby. All want them both safe. She can fill script here. She can come to my office for follow up. There is not likely an OB in [place] who will prescribe MAT.
[2018-03-05 10:48] VITALS: BP 105/56; PULSE 86; TEMP 97.3
[2018-03-05] MEDS ORDERED: miSOPROStol 200 MCG Tablet ONE (10:52)
[2018-03-05] MEDS ORDERED: Tranexamic Acid Inj 1,000 MG/10 ML Ampul ONE (10:52)
[2018-03-05] MEDS ORDERED: Methylergonovine Inj 0.2 MG/ML Ampul ONE (10:52)
[2018-03-05] MEDS ORDERED: Sodium Chlor 0.9% Inj 100 ML ONE (10:52)
[2018-03-05] MEDS ORDERED: Oxytocin 30 Units/500ml Premix 30 UNITS/500 ML BAG ONE (10:52)
[2018-03-05] MEDS ORDERED: Carboprost Tromethamine Inj 250 MCG/ML Ampul IM ONE (10:53)
[2018-03-07 13:51] LABS: Hepatitis C RNA (PCR) log IUs 1.63
== END 2018-03-05 12:16 | disposition home or self-care (01) ==
LOC: HOBED 14:23 → H2E 14:27 → EDSTATUS 16:04 → H2E 16:37 → H1EA 03-03 11:45
PROVIDERS: ADMIT Obstetrics & Gynecology; ATTEND Obstetrics & Gynecology